=== PATIENT | female | born 1970 | race Caucasian/White ===

== ENCOUNTER 2018-07-27 00:06 | Emergency (ER) | payer MEDICAID ==
[~2018-07-27] VITALS: Ht 149.9 cm; Wt 97.1 kg
[~2018-07-27 00:06] MED LIST: CEPH-572 PO; SULF1TAB49 PO
[2018-07-27] MEDS ORDERED: LIDOcaine 1% w/epiNEPHrine 1:200,000 30ml vial IM ONE (00:40)
[2018-07-27 01:41] VITALS: BP 133/82
== END 2018-07-27 01:44 | disposition home or self-care (01) ==
LOC: ER 00:07
DX: L02.01 Cutaneous abscess of face (principal); J44.9 Chronic obstructive pulmonary disease, unspecified; G89.29 Other chronic pain; M54.9 Dorsalgia, unspecified; F17.200 Nicotine dependence, unspecified, uncomplicated
CPT/HCPCS: 10060; 99283; J3490